=== PATIENT | male | born 1990 | race Two or more races ===

== ENCOUNTER 2017-03-05 01:01 | Emergency (ER) | payer OTHER ==
[~2017-03-05] VITALS: Ht 177.8 cm; Wt 86.0 kg
[2017-03-05 02:36] VITALS: BP 118/76
[2017-03-05 03:22] LABS: CLARITY URINE CLEAR (CLEAR); COLOR URINE YELLOW (YELLOW); GLUCOSE URINE NEGATIVE (NEGATIVE); KETONES URINE NEGATIVE (NEGATIVE); LEUKOCYTE ESTERASE URINE NEGATIVE (NEGATIVE); NITRITE URINE NEGATIVE (NEGATIVE); OCCULT BLOOD URINE NEGATIVE (NEGATIVE); PH URINE 6.5 (4.5-8.0); PROTEIN URINE NEGATIVE (NEGATIVE); SPECIFIC GRAVITY URINE 1.019 (1.005-1.030); UROBILINOGEN URINE 0.2 E.U./dL (0.2-1.0)
== END 2017-03-05 04:18 | disposition home or self-care (01) ==
LOC: ER 01:01
DX: N48.1 Balanitis (principal)
CPT/HCPCS: 81003; 99283